=== PATIENT | female | born 1960 | race Hispanic/Latino ===

== ENCOUNTER 2017-06-05 09:12 | Emergency (ER) | payer BC, OTHER ==
[2017-06-05] MEDS ORDERED: Ketorolac Tromethamine 30 MG/ML VIAL ONE ×2 (10:23→10:24)
[2017-06-05] MEDS ORDERED: Dexamethasone 4 mg/ml Vial ONE (10:24)
== END 2017-06-05 10:59 | disposition home or self-care (01) ==
LOC: ERS 09:12
DX: M62.830 Muscle spasm of back (principal); F41.9 Anxiety disorder, unspecified
CPT/HCPCS: 36416; 96372; J1100; J1885

== ENCOUNTER 2018-04-11 17:35 | Emergency (ER) | payer BC, OTHER ==
--- NOTE | 2018-04-11 19:10 | ULT ---
RIGHT LOWER EXTREMITY VENOUS DOPPLER ULTRASOUND: HISTORY: Right lower extremity pain. TECHNIQUE: Multiple longitudinal and transverse images of the right lower extremity venous system were obtained using a Multi-Hertz linear array transducer. Real-time, color-flow, and spectral wave-form Doppler a nalysis was used to evaluate the right lower extremity venous system. FINDINGS: Images demonstrate no evidence of acute or old clot seen in the right common femoral vein, superficia l femoral vein, femoral profunda vein, popliteal vein, posterior tibial vein, post trifurcation vein, and right greater saphenous vein. IMPRESSION: No evidence of right lower extremity deep venous thrombosis. POS: [facility]
== END 2018-04-11 18:56 | disposition home or self-care (01) ==
LOC: ERS 17:35
DX: M76.9 Unspecified enthesopathy, lower limb, excluding foot (principal); F41.9 Anxiety disorder, unspecified; M19.90 Unspecified osteoarthritis, unspecified site

== ENCOUNTER 2018-04-13 14:44 | Outpatient (CLI) | payer BC ==
--- NOTE | 2018-04-13 16:55 | RAD ---
RIGHT KNEE 2 VIEWS: Date: 04/13/18 HISTORY: Acute pain to right knee. FINDINGS/IMPRESSION: Degenerative changes are seen. No fracture dislocation, or bony destruction is identified. There is f ullness in the suprapatellar pouch, suspicious for joint effusion. POS: [facility]
== END 2018-04-13 14:45 | disposition home or self-care (01) ==
LOC: BICRAD 14:44
PROVIDERS: ATTEND Physician Assistant
DX: M25.561 Pain in right knee (principal); M17.11 Unilateral primary osteoarthritis, right knee

== ENCOUNTER 2018-04-30 14:18 | Emergency (ER) | payer BC | END 2018-04-30 16:05 | disposition home or self-care (01) | LOC: ERS 14:18 | DX: G89.29 Other chronic pain (principal); M25.562 Pain in left knee | CPT/HCPCS: 99283 ==

== ENCOUNTER 2019-02-18 15:28 | Emergency (ER) | payer BC ==
[2019-02-18] MEDS ORDERED: HYDROcodone/Acetaminophen 5/325 mg Tablet ONE (17:44)
--- NOTE | 2019-02-18 17:54 | RAD ---
LEFT KNEE FOUR VIEWS: 02/18/19 HISTORY: Knee pain. The bones are demineralized. There is severe arthritic changes of the knee. There is marked degenerat corinna changes of the medial compartment as well as prominent patellofemoral spur formation and lateral compartment degenerative change. Moderately large joint effusion is present. No acute process is demo nstrated. IMPRESSION: Moderate joint effusion with marked arthritic changes of the knee. POS: [facility]
== END 2019-02-18 18:40 | disposition home or self-care (01) ==
LOC: ERS 15:28
DX: M17.12 Unilateral primary osteoarthritis, left knee (principal); M25.462 Effusion, left knee; E78.00 Pure hypercholesterolemia, unspecified; F41.9 Anxiety disorder, unspecified; F32.9 Major depressive disorder, single episode, unspecified; Z79.899 Other long term (current) drug therapy